=== PATIENT | male | born 1990 | race Two or more races ===

== ENCOUNTER 2018-02-06 19:50 | Emergency (ER) | payer OTHER ==
[2018-02-06 19:56] VITALS: BP 136/82
[2018-02-06] MEDS ORDERED: TDAP ADULT 0.5 ML INJ (BOOSTRIX) IM ONE (20:08)
--- NOTE | 2018-02-06 20:13 | EDPHY ---
H & P Stated Complaint: cut left middle finger cooking Time Seen by Provider: 02/06/18 20:08 HPI/ROS: HPI: This is a 27-year-old male who presents with Chief Complaint: cut left middle finger cooking Location: left middle finger Quality: laceration Duration: Prior to arrival Signs and Symptoms: + bleeding, no radiation, no numbness, no weakness, no tingling, no decreased range of motion, no swelling, no pain, no fever Timing: Acute Severity: Mild Context: Patient is right-hand dominant, presents with accidentally cutting his left middle finger while peeling potatoes prior to arrival. Patient reports that the bleeding would not stop even with applying direct pressure so he came to the emergency room to see if he needed stitches. Patient denies any pain/decreased range of motion/weakness/paresthesias. Tetanus status unknown. Modifying Factors: Direct pressure Comment: ROS: see HPI Constitutional: No fever, no chills, no weight loss Eyes: No blurred vision Respiratory: No shortness of breath, no cough Cardiovascular: No chest pain Gastrointestinal: No nausea, no vomiting no diarrhea Genitourinary: No dysuria Extremities: No myalgias Neurologic: No weakness, no numbness Skin: No rashes Hematologic: No bruising, no bleeding MEDICAL/SURGICAL/SOCIAL HISTORY: Medical history: Generally healthy. Does not take any regular medications. Surgical history: Denies Social history: Nonsmoker. Employed. CONSTITUTIONAL: Polite and cooperative young adult male, awake and alert, no obvious distress HEENT: Atraumatic and normocephalic. Cardiovascular: Normal S1/S2, regular rate, regular rhythm, without murmur rub or gallop. PULMONARY/CHEST: Symmetrical and nontender. Clear to auscultation bilaterally. Good air movement. No accessory muscle usage. ABDOMEN: Soft, nondistended, nontender, no rebound, no guarding, no peritoneal signs, no masses or organomegaly. No CVAT. EXTREMITIES: 2/2 pulses, strength 5/5, left 3rd digit-volar aspect over the DIP joint; 0.25 inch superficial, jamul shaped simple laceration. no deformities, no clubbing, no cyanosis or edema. NEUROLOGICAL: no focal neuro deficits. GCS 15. SKIN: Warm and dry, no erythema. no rash. Good capillary refill. Source: Patient Exam Limitations: No limitations - Personal History Current Tetanus/Diphtheria Vaccine: Unsure Current Tetanus Diphtheria and Acellular Pertussis (TDAP): Unsure - Medical/Surgical History Hx Asthma: No Hx Chronic Respiratory Disease: No Hx Diabetes: No Hx Cardiac Disease: No Hx Renal Disease: No Hx Cirrhosis: No Hx Alcoholism: No Hx HIV/AIDS: No Hx Splenectomy or Spleen Trauma: No Other PMH: denies - Social History Smoking Status: Never smoked Constitutional: Initial Vital Signs Temperature (C) 36.8 C 02/06/18 19:52 Heart Rate 103 H 02/06/18 19:52 Respiratory Rate 16 02/06/18 19:52 Blood Pressure 136/82 H 02/06/18 19:52 O2 Sat (%) 97 02/06/18 19:52 O2 Delivery Mode Room Air Allergies/Adverse Reactions: No Known Allergies Allergy (Unverified 02/06/18 19:56) Home Medications: Medication Instructions Recorded NK [No Known Home Meds] 02/06/18 Medical Decision Making Procedures: Procedure: Splint placement. A left middle finger aluminum splint was applied by the Emergency Room fibre composite technician. After application of the splint I returned and re-examined the patient. The splint was adequately immobilizing the joint and distal to the splint the patient's circulation and sensation was intact. ED Course/Re-evaluation: Silver nitrate sticks x 3 used to obtain hemostasis Superficial skin avulsion noted; no sutures indicated Bacitracin and clean sterile dressing applied Placed in aluminum finger splint for immobilization and to prevent rebleeding for the next 48 hours. No signs of neurovascular compromise/tenting of skin/compartment syndrome/ extremities and joints examined above and below area of concern and are neurovascularly intact. Tetanus booster given This patient was seen under the supervision of my secondary supervising physician. I evaluated care for this patient independently. Differential Diagnosis: Differential diagnosis includes but is not limited to laceration, skin avulsion , tendon injury, nerve injury, nail injury. - Data Points Medications Given: Discontinued Medications Diphtheria/Tetanus/Acell Pertussis (Boostrix) 0.5 ml IM .ONCE ONE Stop: 02/06/18 20:09 Last Admin: 02/06/18 20:30 Dose: 0.5 ml Departure - Departure Disposition: Home, Routine, Self-Care Clinical Impression: Avulsion of skin of middle finger without complication Qualifiers: Encounter type: initial encounter Qualified Code(s): S61.208A - Unspecified open wound of other finger without damage to nail, initial encounter Condition: Good Instructions: Skin Avulsion (ED) Additional Instructions: Keep the dressing/splint dry and in place for 48-72 hours. After 48 hours, you may remove the dressing; wash the site daily with mild soap and water; then pat dry; apply topical antibiotic ointment and clean sterile dressing until fully healed. Take Tylenol 650 mg every 4 hours and/or Ibuprofen 600 mg every 8 hours with food as needed for pain. Apply ice for 30 minutes at a time; 2-3 times per day for the next 1-2 days. Return to the ER immediately if you experience redness, red streaks, have fevers /chills, flu like symptoms, limited range of motion, or any other symptoms that concern you. Referrals: Kulwant Centeno MD [Primary Care Provider] - As per Instructions
[2018-02-06] MEDS ORDERED: SILVER NITRATE APPLICATOR 1 APPL TP ONE ×2 (20:18→20:20)
== END 2018-02-06 20:42 | disposition home or self-care (01) ==
DX: S61.203A Unspecified open wound of left middle finger without damage to nail, initial encounter (principal); Z23 Encounter for immunization; W26.8XXA Contact with other sharp object(s), not elsewhere classified, initial encounter; Y99.8 Other external cause status; Y93.G1 Activity, food preparation and clean up
CPT/HCPCS: L3925